=== PATIENT | female | born 1950 | race Caucasian/White ===

== ENCOUNTER 2016-12-27 08:26 | Inpatient (IN) | payer OTHER ==
[2016-12-27] MEDS ORDERED: ceFAZolin Inj 2gm (Premix) 2 GM in Dextrose 1 BAG IV ONE (08:43)
[2016-12-27] MEDS ORDERED: NORMAL SALINE 10 ML SYRINGE FLUSH IVP PRN ×2 (08:45→10:23)
[2016-12-27 09:05] LABS: HEMATOCRIT 36.4 % (37.0-47.0); HEMOGLOBIN 11.7 g/dL (12.0-16.0); MEAN CORPUSCULAR HEMOGLOBIN 28.9 PG (27-31); MEAN CORPUSCULAR HGB CONC 32.1 g/dL (33-37); MEAN CORPUSCULAR VOLUME 89.9 FL (81-99); MEAN PLATELET VOLUME 9.2 FL (7.4-12.2); RED BLOOD COUNT 4.05 10^6/uL (4.20-5.40)
--- NOTE | 2016-12-27 09:06 | PDOC ---
Abdomen/Flank HPI - General Chief Complaint: Abdomen Pain Stated Complaint: ABDOMINAL PAIN Date Seen by Provider: 12/27/16 Time Seen by Provider: 09:02 - History of Present Illness Initial Comments: Patient is a very nice 66-year-old morbidly obese woman who has been noticing increasing pain and some drainage on her pannus. She states that over about 4- 5 days she's had increasing pain and redness and hasn't started to notice breakdown and drainage on her abdomen. She's not sure exactly what the source of her infection was but certainly does have a significant cellulitis there. She does not have diabetes she has a couple medicines that she normally takes which can't member what they are she knows she has hypertension but feels like otherwise she is pretty healthy. - Patient Allergies Allergies/Adverse Reactions: Allergies Allergy/AdvReac Type Severity Reaction Status Date / Time No Known Allergies Allergy Unverified 12/27/16 08:58 Past Medical History Past Medical History Reviewed: Reviewed - No Changes ROS - Limitations ROS Limitations: No Limitations Constitution: DENIES: Chills, Fever Cardiovascular: REPORTS: Denies Cardiac Symptoms Respiratory: REPORTS: Denies Resp Symptoms Neurological: REPORTS: Denies Neuro Symptoms Abdominal/Flank Pain PE - General Appearance General Appearance: POSITIVE: Alert, Cooperative, No Acute Distress - HEENT HEENT: POSITIVE: Head Inspection Nml, Eyes Inspection Nml - Neck Neck: POSITIVE: Normal Inspection, No Apparent Injury - Respiratory Respiratory: POSITIVE: No Respiratory Distress, Breath Sounds Normal - Cardiovascular Cardiovascular: POSITIVE: Regular Rate and Rhythm, Heart Sounds Normal - Chest Chest: POSITIVE: Non Tender - Abdomen Additional Abdominal Details: Patient has a very large pannus that is erythematous and very tender and painful with a area of skin breakdown about 3 inches wide underneath the umbilicus. - Back Back: POSITIVE: Normal Inspection - Skin Skin: POSITIVE: Intact - Neurological Neurological: POSITIVE: Affect Apporpriate, Oriented X3 Abdomen Progress - Results Reviewed by me Lab Results Reviewed: Yes - Patient's Progress MDM / ED Course: This patient has a significant cellulitis of her pannus. I recommended admission I've discussed it with the hospitalist and hospitalist agrees to admit the patient. Patient is given IV dose of Ancef further antibiotic choices per hospitalist. Patient Care Time - Estimated PCT Patient Care Time (In Minutes): 35 Vital Signs - VS Reviewed Vital Signs Reviewed: Yes (all vitals reviewed) Discharge Clinical Impression: Panniculitis Discharge Disposition: Admit to Inpatient Condition: Stable Date Decision to Admit to Inpatient: 12/27/16 Time Decision to Admit to Inpatient: 09:06
[2016-12-27 09:14] LABS: BLOOD UREA NITROGEN 23 mg/dL (7-22); BUN/CREATININE RATIO 25.55 (6-20); CALCIUM 8.2 mg/dL (8.7-10.7); EST GLOMERULAR FILTRATION > 60 (>60 ml/min/1.73m(2))
[2016-12-27] MEDS ORDERED: HYDROcodone-APAP 10 MG-325 MG TABLET PO ONE (09:14)
[2016-12-27] MEDS ORDERED: Sodium Chloride 0.9% 1,000 ML PRIMARY IV ONE ×2 (09:14→12:15)
[2016-12-27 09:17] LABS: BAND NEUTROPHILS % 6 % (0-10); BASOPHILS % (MANUAL) 0 % (0-1); EOSINOPHILS % (MANUAL) 1 % (0-8); LYMPHOCYTES % (MANUAL) 17 % (10-50); MONOCYTES % (MANUAL) 5 % (0-12); NEUTROPHILS % (MANUAL) 71 % (50-80); PLATELET MORPHOLOGY COMMENT NORMAL MORPHOLOGY (NORM); RBC MORPHOLOGY COMMENT NORMAL MORPHOLOGY (NORM); WBC MORPHOLOGY COMMENT NORMAL MORPHOLOGY (NORM)
[2016-12-27] MEDS ORDERED: ACETAMINOPHEN 325 MG TABLET PO PRN (10:23)
[2016-12-27] MEDS ORDERED: ceFAZolin Inj 2gm (Premix) 2 GM in Dextrose 1 BAG IV SCH ×2 (10:23→17:30)
[2016-12-27] MEDS ORDERED: LIDOCAINE W/ SODIUM BICARB 0.5 ML SYR SUBD PRN (10:23)
[2016-12-27] MEDS ORDERED: ONDANSETRON 4 MG/2 ML VIAL IVP PRN (10:23)
[2016-12-27] MEDS ORDERED: HYDROcodone-APAP 5 MG -325 MG TABLET PO PRN (10:23)
[2016-12-27 10:58] VITALS: RESP 20
[2016-12-27] MEDS ORDERED: HYDROmorphone 2 MG/1 ML IVP PRN (12:00)
[2016-12-27] MEDS ORDERED: Sodium Chloride 0.9% 1,000 ML IV SCH (12:00)
--- NOTE | 2016-12-27 12:07 | PDOC ---
History and Physical - History of Present Illness Date and Time of Service: 12/27/2016, 1204 Chief Complaint: Abdominal pain History of Present Illness: This very pleasant 66-year-old female whose traveling from [place], [place], who presented here this morning with complaints of abdominal pain. She states that in order to get to the bathroom and her RV as her and her are on a trip around the [facility], she has to go by her RV mattress which is a little oversized. She scraped her abdomen on that going to the bathroom. About 4-5 days ago, she noticed some blistering which opened up and then started to drain yellow fluid without odor. No fevers or chills with all this. Redness is spreading along the entire lower third of the abdomen to the flanks. She's not had anything like this before. She took Tylenol and Excedrin for pain but that was not helping. She got hydrocodone in the emergency room and that did not help either. She states that she has an umbilical hernia as a result of uterine fibroids. She has not had any definitive surgery for her fibroids. He states those were diagnosed about 4-5 years ago not had any postmenopausal bleeding. Nothing else seemed to make the pain worse other than a gradually got worse over the last 4 days. Nothing seemed to make her feel better. She states that the pain really hurts when she stands up and tries to walk. She had a recent epidural for some back pain issues, and thought that this could be the cause of her abdominal pain initially. Past Medical History Medical History: 1. Hypertension. 2. Depression. 3. Hypothyroidism. 4. Uterine fibroids. 5. Obesity with body mass index greater than 50. 6. Essential tremor bilaterally. 7. Chronic back pain issues with recent epidural. Surgical History: 1. Remote cholecystectomy, open, in the 1970s Pertinent Family History: Father of multiple issues, including dementia, stroke, respiratory failure, and ultimately anoxic brain injury. Mother of breast cancer that the patient thinks his lifestyle related with smoking and drinking. Past Social History: Quit smoking in 1981. Drinks 2-4 beverages per week. for over 33 years. Lives in [place], [place]. Tobacco Use: Former Smoker Substance Use Type: None Alcohol Use: Occasionally Medication / Allergies Home Medications: Home Medications Medication Instructions Recorded Confirmed Type Aspirin [Aspir-Low] 81 mg PO DAILY 12/27/16 12/27/16 History Atorvastatin Calcium 30 mg PO DAILY 12/27/16 12/27/16 History Escitalopram Oxalate [Lexapro] 30 mg PO DAILY 12/27/16 12/27/16 History Hydrochlorothiazide 25 mg PO DAILY 12/27/16 12/27/16 History Levothyroxine Sodium [Synthroid] 100 mcg PO DAILY 12/27/16 12/27/16 History Lisinopril 40 mg PO DAILY 12/27/16 12/27/16 History Allergies/Adverse Reactions: Allergies Allergy/AdvReac Type Severity Reaction Status Date / Time No Known Allergies Allergy Unverified 12/27/16 08:58 Review of Systems - Review of Systems All Systems: Reviewed & No Additional Complaints Except as Stated (I did a 12 point review systems and it was negative except for history present illness and as per noted below.) - Respiratory Respiratory: DENIES: Negative System Review, Cough, Sputum, Dyspnea At Rest, Dyspnea with Exertion, Pleuritic Pain, Hemoptysis, Wheezing, Other, See HPI - Cardiovascular Cardiovascular: DENIES: Negative System Review, Chest Pain, Edema, Syncope, Palpitations, Orthopnea, Paroxysmal Nocturnal Dyspnea, Other, See HPI - Gastrointestinal Gastrointestinal / Abdominal: REPORTS: Abdominal Pain - Genitourinary Genitourinary: DENIES: Negative System Review, Pain, Burning, Hematuria, Incontinence, Urgency, Hesitant Stream, Decreased Stream, Nocutria, Discharge, Sexual Dyfunction, Other, See HPI - Gynecological Gynecological: REPORTS: Other (Uterine fibroids..) Para: 0 - Musculoskeletal Musculoskeletal: REPORTS: Other (Patient does complain of arthritis) - Neurological Neurologic: DENIES: Negative System Review, Headache, Numbness/Paresthesia, Tremors, Weakness, Seizures, Head Trauma, LOC, Dizziness, Confusion, Memory Loss , Difficulty Walking, Incoordination, Other, See HPI - Psychiatric Psychiatric: REPORTS: Depressed (Controlled well with Lexapro. Apparently her doctor doses of 30 mg due to body distribution.) Exam - Vitals Vital Signs: Vital Signs Temperature 97.0 F Temperature Source Temporal Artery Scan Pulse Rate [Apical] 95 Pulse Rate [Pulse Oximeter 96 Left] Pulse Rate 81 Respiratory Rate 20 Blood Pressure [Right Arm] 121/66 Blood Pressure 128/77 Pulse Ox 91 Oxygen Delivery Method Room Air Height 5 ft 9 in Weight 340 lb - General General Appearance: POSITIVE: No Acute Distress, Cooperative, Morbidly Obese Additional General Exam Details: In obvious pain. - Head Head Exam: POSITIVE: Normal Inspection, Normocephalic, Atraumatic - Eye Eye Exam: POSITIVE: No Scleral Icterus - ENT ENT Exam: POSITIVE: Mucous Membranes Moist - Neck Neck Exam: POSITIVE: Normal Inspection, No Tenderness, No Thyromegaly - Respiratory Respiratory Exam: POSITIVE: Clear to Auscultation - Bilaterally, Breathing Non Labored, Normal to Percussion and Palpation - Cardiovascular Cardiovascular Exam: POSITIVE: RRR, No Murmur, No Clicks, No Gallops, No Rubs, No JVD - GI/Abdominal GI/Abdominal Exam: POSITIVE: Normal Bowel Sounds, Non Tender, Soft, Hernia ( Umbilical hernia, tender to palpation but currently infected with cellulitis) - Rectal Rectal Exam: POSITIVE: Deferred - External Exam: POSITIVE: Deferred Exam: POSITIVE: Deferred - Extremities Extremities Exam: POSITIVE: No Clubbing Present, No Edema Present, No Cyanosis Present - Neurological Neurological Exam: POSITIVE: Alert, Oriented x 3, No Facial Droop, Speech Intact / Clear, Moves All Extremities Equally - Psychiatric Psychiatric Exam: POSITIVE: Normal Affect, Normal Mood - Integumentary Integumentary Exam: POSITIVE: Rash Additional Integumentary Exam Details: Erythematous, very tender, lower third of the abdomen, probably with yeast and bacteria, this is consistent with cellulitis. It is very tender to touch. - Central Line Examination Central Line Present on Admission: No Results - Labs CBC and BMP: 12/27/16 08:53 12/27/16 08:53 Labs - Last 24 Hours: Laboratory Results 12/27/16 12/27/16 Range/Units 08:53 09:14 WBC 11.43 H (4.8-10.8) 10^3/uL RBC 4.05 L (4.20-5.40) 10^6/uL Hgb 11.7 L (12.0-16.0) g/dL Hct 36.4 L (37.0-47.0) % MCV 89.9 (81-99) FL MCH 28.9 (27-31) PG MCHC 32.1 L (33-37) g/dL RDW Std Deviation 50.2 H (39-50) fL RDW Coeff of Susana 15.5 H (11.5-14.5) % Plt Count 463 H (140-350) 10*3/uL MPV 9.2 (7.4-12.2) FL Neutrophils % (Manual) 71 (50-80) % Band Neutrophils % 6 (0-10) % Lymphocytes % (Manual) 17 (10-50) % Monocytes % (Manual) 5 (0-12) % Eosinophils % (Manual) 1 (0-8) % Basophils % (Manual) 0 (0-1) % Metamyelocytes % Not Reportable Myelocytes % Not Reportable Promyelocytes % Not Reportable Blast Cells Not Reportable WBC Morphology Comment Normal morphology (NORM) Plt Morphology Comment Normal morphology (NORM) RBC Morph Comment Normal morphology (NORM) Sodium 138 (135-145) meq/L Potassium 4.7 (3.8-5.2) meq/L Chloride 104 (98-112) meq/L Carbon Dioxide 21 L (23-33) meq/L Anion Gap 13 (5-20) BUN 23 H (7-22) mg/dL Creatinine 0.9 (0.50-1.20) mg/dL Estimated GFR > 60 (>60 ml/min/1.73m(2)) BUN/Creatinine Ratio 25.55 H (6-20) Glucose 123 H (78-110) mg/dL Calculated Osmolality 290.0 (267-292) mOsm/kg Lactic Acid 1.1 (0.70-2.10) MMOL/L Calcium 8.2 L (8.7-10.7) mg/dL Total Bilirubin 0.9 (0.3-1.2) mg/dL AST 98 H (8-39) IU/L ALT 170 H (9-52) IU/L Alkaline Phosphatase 226 H (38-126) IU/L Total Protein 5.9 L (6.1-8.0) g/dL Albumin 3.0 L (3.5-4.8) g/dL Globulin 2.9 (2.50-4.10) g/dL Albumin/Globulin Ratio 1.00 L (1.3-2.0) mg/g Blood cultures are pending. Wound cultures pending as there is drainage from the wound. - Imaging Status: Image Pending (I have ordered a CT scan of the abdomen and pelvis with contrast to make sure there is no underlying abscess.) Assessment and Plan - Patient Problems (1) Abdominal wall cellulitis Current Visit: Yes Status: Acute (2) Panniculitis Current Visit: Yes Status: Removed (3) Hypertension Current Visit: Yes Status: Acute Qualifiers: Hypertension type: essential hypertension Qualified Description: Essential hypertension Qualifier Code(s): (I10) Essential (primary) hypertension (4) Umbilical hernia Current Visit: Yes Status: Acute Qualifiers: Obstruction and gangrene presence: without obstruction or gangrene Qualified Description: Umbilical hernia without obstruction and without gangrene Qualifier Code(s): (K42.9) Umbilical hernia without obstruction or gangrene (5) Hypothyroidism Current Visit: Yes Status: Acute Qualifiers: Hypothyroidism type: acquired Qualified Description: Acquired hypothyroidism Qualifier Code(s): (E03.9) Hypothyroidism, unspecified (6) Morbid obesity with BMI of 50.0-59.9, adult Current Visit: Yes Status: Acute (7) Essential tremor Current Visit: Yes Status: Acute (8) Depression Current Visit: Yes Status: Acute Qualifiers: Depression Type: major depressive disorder Major depression recurrence : recurrent Active/Remission status: in partial remission Qualified Description: Recurrent major depressive disorder, in partial remission Qualifier Code(s): (F33.41) Major depressive disorder, recurrent, in partial remission - Assessment / Plan Additional Assessment/Plan Details: Admit the patient. For now Ancef 2 g IV every 8 hours, IV fluids, get a CT scan to look at this further, and I suggested potentially looking at transfer to [place] for infectious disease care as this is a very large abdominal wall cellulitis. I think this will require IV antibiotics for some time, and we will not have the ability to do a PICC line when cultures are negative at 48 hours as will not have a radiologist in the hospital during those days. Labs ordered for tomorrow. IV pain medications. Tylenol as necessary for fever. Resume home medications. The uterine fibroids should be worked up and I think the patient should see an orthotics technician and analytic manager regarding these. Overall, I think this infection might be a little too complex for us to deal with here, I will discuss with a referral center and an infectious disease specialist.
--- NOTE | 2016-12-27 13:22 | DI ---
CT ABD W/CN AND PELVIS W/CN,12/27/2016 11:42 AM: Clinical History: Large panniculitis question abscess. Previous Exam: None at this facility. Findings: Multiple helically acquired CT images are obtained through the abdomen and pelvis following the intra venous administration of contrast, and demonstrate a large ventral hernia containing a large amount o f omental fat and multiple loops of small bowel. This hernia measures 7.3 cm in diameter. There is a mixed density fluid collection lessens and thickening just to the right and inferior to th e hernia sac. There is no free air nor free fluid in the peritoneal cavity. The liver, spleen, pancreas, adrenals and kidneys are unremarkable. Calcified uterine fibroids are seen. There is also a fat-containing left inguinal hernia. Degenerative changes of the spine are seen. Impression: 1. Large 11.0 x 9.1 x 6.0 cm complex fluid collection within the anterior subcutaneous fat with overl olga skin thickening most consistent with a large abscess. This is in close approximation to a large hernia sac, and therefore any instrumentation in this abscess should be performed very carefully to a void contamination of the peritoneal structures.
--- NOTE | 2016-12-27 13:59 | DCSUMMARY ---
Hospitalization Summary Admit Date: 12/27/16 Discharge Date: 12/27/16 Primary Diagnosis:: abdominal wall cellulitis and abscess Secondary Diagnosis:: Panniculitis Hospital Course: This very pleasant 66-year-old female that has been traveling with her from [place], [place], and presents here this morning with complaints of abdominal pain. It hurt so bad she really had a hard time even standing up or walking. She was found to have a cellulitis and abdominal wall abscess, and she got a dose of Ancef. I've given her IV fluids, but I feel that with the abdominal wall abscess and large umbilical hernia sac, and the proximity of this abscess to the hernia sac, that the patient really should not have surgical intervention here. She needs an infectious disease physician to see her as well, I spoke with Dr. Nava and Dr. Gonzalez, hospitalist, and they agreed to accept the patient in transfer. Currently, the patient denies chest pain, shortness breath, nausea or vomiting. She has not had anything to eat since admission. She's not had anything to drink since admission. She denies any MRSA risk factors. Assessment and Plan: 1. As per discharge assessments noted 2. Disposition: Patient is discharged on Medical Center 3. Condition on discharge, stable, but patient's condition could deteriorate based on the diagnosis. 4. Diet: Nothing by mouth 5. Activities: resume normal activities/as per primary Medical Center 6. Follow-Up: 1. Primary care provider upon return to [place] 2. 7. Medications at the Time of Discharge: Active Medications Generic Name Dose Route Start Last Admin Trade Name Freq PRN Reason Stop Dose Admin Acetaminophen 650 mg 12/27/16 10:23 Tylenol PO Q6H PRN Pain or Fever Acetaminophen/Hydrocodone Bitart 1 tab 12/27/16 10:23 [employer] 5/325 Tab PO Q4H PRN Pain Aspirin 81 mg 12/28/16 09:00 Aspirin Ec PO DAILY [facility] Atorvastatin Calcium 30 mg 12/27/16 21:00 Lipitor PO BEDTIME [facility] Enoxaparin Sodium 40 mg 12/28/16 09:00 Lovenox Inj SUBCUT DAILY [facility] Escitalopram Oxalate 30 mg 12/28/16 09:00 Lexapro PO DAILY [facility] Hydrochlorothiazide 25 mg 12/28/16 09:00 Hydrodiuril PO DAILY [facility] Hydromorphone HCl 1 mg 12/27/16 12:00 12/27/16 12:21 Dilaudid Inj IVP 1 mg Q3H PRN Administration Pain Sodium Chloride 1,000 mls @ 125 mls/hr 12/27/16 09:14 12/27/16 09:25 Normal Saline PRIMARY IV 12/27/16 17:13 125 mls/hr ONCE (ED) ONE Administration Sodium Chloride 25 mls @ 200 mls/hr 12/27/16 10:23 Normal Saline 0.9% IV .Post Infusion PRN No Primary IV for Flush ONLY Sodium Chloride 1,000 mls @ 100 mls/hr 12/27/16 12:00 Normal Saline IV .Q10H [facility] Cefazolin Sodium/Dextrose 2 gm 50 mls @ 100 mls/hr 12/27/16 17:30 / Glucose IV Q8H [facility] Levothyroxine Sodium 100 mcg 12/28/16 05:30 Synthroid PO DAILY@0530 [facility] Lidocaine HCl 0.5 ml 12/27/16 10:23 Lidocaine Buffered Inj SUBD ONCE PRN IV Starts Lisinopril 40 mg 12/28/16 09:00 Prinivil PO DAILY [facility] Ondansetron HCl 4 mg 12/27/16 10:23 Zofran Inj IVP Q4H PRN NAUSEA / VOMITING Sodium Chloride 5 - 20 ml 12/27/16 10:23 Saline Flush IVP BID PRN Flush 8. Time, care, counseling and coordination of care for this discharge is greater than 30 minutes. Exam - Vitals Vital Signs: Vital Signs Temperature 97.0 F Temperature Source Temporal Artery Scan Pulse Rate [Apical] 95 Pulse Rate [Pulse Oximeter 96 Left] Pulse Rate 81 Respiratory Rate 20 Blood Pressure [Right Arm] 121/66 Blood Pressure 128/77 Pulse Ox 91 Oxygen Delivery Method Room Air Height 5 ft 9 in Weight 340 lb - General General Appearance: POSITIVE: No Acute Distress, Cooperative, Morbidly Obese - Respiratory Respiratory Exam: POSITIVE: Clear to Auscultation - Bilaterally, Breathing Non Labored - Cardiovascular Cardiovascular Exam: POSITIVE: RRR, No Murmur, No Clicks, No Gallops, No Rubs, No JVD - GI/Abdominal GI/Abdominal Exam: POSITIVE: Normal Bowel Sounds, Non Distended, Soft, Hernia ( Umbilical) Additional GI/Abdominal Exam Details: Significant tenderness to palpation in the abdomen. - Extremities Extremities Exam: POSITIVE: No Clubbing Present, No Edema Present, No Cyanosis Present - Neurological Neurological Exam: POSITIVE: Alert, Oriented x 3, No Facial Droop, Speech Intact / Clear, Moves All Extremities Equally Data Perinent Studies: Laboratory Results 12/27/16 12/27/16 Range/Units 08:53 09:14 WBC 11.43 H (4.8-10.8) 10^3/uL RBC 4.05 L (4.20-5.40) 10^6/uL Hgb 11.7 L (12.0-16.0) g/dL Hct 36.4 L (37.0-47.0) % MCV 89.9 (81-99) FL MCH 28.9 (27-31) PG MCHC 32.1 L (33-37) g/dL RDW Std Deviation 50.2 H (39-50) fL RDW Coeff of Susana 15.5 H (11.5-14.5) % Plt Count 463 H (140-350) 10*3/uL MPV 9.2 (7.4-12.2) FL Neutrophils % (Manual) 71 (50-80) % Band Neutrophils % 6 (0-10) % Lymphocytes % (Manual) 17 (10-50) % Monocytes % (Manual) 5 (0-12) % Eosinophils % (Manual) 1 (0-8) % Basophils % (Manual) 0 (0-1) % Metamyelocytes % Not Reportable Myelocytes % Not Reportable Promyelocytes % Not Reportable Blast Cells Not Reportable WBC Morphology Comment Normal morphology (NORM) Plt Morphology Comment Normal morphology (NORM) RBC Morph Comment Normal morphology (NORM) Sodium 138 (135-145) meq/L Potassium 4.7 (3.8-5.2) meq/L Chloride 104 (98-112) meq/L Carbon Dioxide 21 L (23-33) meq/L Anion Gap 13 (5-20) BUN 23 H (7-22) mg/dL Creatinine 0.9 (0.50-1.20) mg/dL Estimated GFR > 60 (>60 ml/min/1.73m(2)) BUN/Creatinine Ratio 25.55 H (6-20) Glucose 123 H (78-110) mg/dL Calculated Osmolality 290.0 (267-292) mOsm/kg Lactic Acid 1.1 (0.70-2.10) MMOL/L Calcium 8.2 L (8.7-10.7) mg/dL Total Bilirubin 0.9 (0.3-1.2) mg/dL AST 98 H (8-39) IU/L ALT 170 H (9-52) IU/L Alkaline Phosphatase 226 H (38-126) IU/L Total Protein 5.9 L (6.1-8.0) g/dL Albumin 3.0 L (3.5-4.8) g/dL Globulin 2.9 (2.50-4.10) g/dL Albumin/Globulin Ratio 1.00 L (1.3-2.0) mg/g Patient Problems - Patient Problem List (1) Abdominal wall cellulitis Current Visit: Yes Status: Acute (2) Panniculitis Current Visit: Yes Status: Removed (3) Hypertension Current Visit: Yes Status: Acute Qualifiers: Hypertension type: essential hypertension Qualified Description: Essential hypertension Qualifier Code(s): (I10) Essential (primary) hypertension (4) Umbilical hernia Current Visit: Yes Status: Acute Qualifiers: Obstruction and gangrene presence: without obstruction or gangrene Qualified Description: Umbilical hernia without obstruction and without gangrene Qualifier Code(s): (K42.9) Umbilical hernia without obstruction or gangrene (5) Hypothyroidism Current Visit: Yes Status: Acute Qualifiers: Hypothyroidism type: acquired Qualified Description: Acquired hypothyroidism Qualifier Code(s): (E03.9) Hypothyroidism, unspecified (6) Morbid obesity with BMI of 50.0-59.9, adult Current Visit: Yes Status: Acute (7) Essential tremor Current Visit: Yes Status: Acute (8) Depression Current Visit: Yes Status: Acute Qualifiers: Depression Type: major depressive disorder Major depression recurrence : recurrent Active/Remission status: in partial remission Qualified Description: Recurrent major depressive disorder, in partial remission Qualifier Code(s): (F33.41) Major depressive disorder, recurrent, in partial remission
[2016-12-27 14:03] VITALS: TEMP 97.6
[2016-12-27] MEDS ORDERED: HYDROmorphone 2 MG/1 ML IVP STA (14:33)
[2016-12-27] MEDS ORDERED: ATORVASTATIN 20 MG TABLET PO SCH (21:00)
[2016-12-28] MEDS ORDERED: LEVOTHYROXINE 100 MCG TABLET PO SCH (05:30)
[2016-12-28] MEDS ORDERED: LISINOPRIL 20 MG TABLET PO SCH (09:00)
[2016-12-28] MEDS ORDERED: ESCITALOPRAM 10 MG TABLET PO SCH (09:00)
[2016-12-28] MEDS ORDERED: ASPIRIN EC 81 MG TABLET PO SCH (09:00)
[2016-12-28] MEDS ORDERED: ENOXAPARIN SODIUM 40 MG/0.4 ML SYRINGE SUBCUT SCH (09:00)
[2016-12-28] MEDS ORDERED: HYDROCHLOROTHIAZIDE 25 MG TABLET PO SCH (09:00)
== END 2016-12-27 14:45 | disposition short-term general hospital (02) | DRG 603 ==
LOC: ER 08:26 → MED/SURG 09:14
PROVIDERS: ADMIT Family Medicine; ATTEND Family Medicine
DX: L03.311 Cellulitis of abdominal wall (principal); Z68.43 Body mass index [BMI] 50.0-59.9, adult; M79.3 Panniculitis, unspecified; I10 Essential (primary) hypertension; K42.9 Umbilical hernia without obstruction or gangrene; E03.9 Hypothyroidism, unspecified; E66.01 Morbid (severe) obesity due to excess calories; R25.1 Tremor, unspecified; F33.41 Major depressive disorder, recurrent, in partial remission
CPT/HCPCS: 36415; 74177; 80053; 83605; 85007; 87040; 87070; 87077; 87186; 87205; 87641; 96365; 99284; J0690; J1170; J7030